=== PATIENT | female | born 2000 | race Caucasian/White ===

== ENCOUNTER 2018-11-26 10:57 | Emergency (ER) | payer OTHER ==
[~2018-11-26] VITALS: Ht 160 cm; Wt 61.4 kg
[2018-11-26] MEDS ORDERED: MIRE1IUD IU (11:06)
[2018-11-26] MEDS ORDERED: NS 1,000 ML IV ONE (12:00)
[2018-11-26] MEDS ORDERED: CLINDAMYCIN 900 MG in APPROPRIATE DILUENT 1 EA IV ONE (12:00)
[2018-11-26] MEDS ORDERED: KETOROLAC 30 MG/ML VIAL (J1885) IV ONE (12:15)
[2018-11-26 12:16] LABS: BASO # 0.1 10^3/uL (0.0-0.2); BASO % 0.3 % (0.0-1.0); HEMOGLOBIN 12.7 g/dl (12.0-15.5); LYMPH # 0.9 10^3/uL (1.5-6.5); LYMPH % 5.7 % (24.0-44.0); MEAN CORPUSCULAR HEMOGLOBIN 31.5 pg (27.0-33.0); MEAN CORPUSCULAR HGB CONC 35.3 g/dl (32.0-36.5); MEAN CORPUSCULAR VOLUME 89.3 fl (80.0-96.0); MONO # 1.8 10^3/uL (0.0-0.8); MONO % 10.9 % (0.0-5.0); NEUTROPHILS # 13.5 10^3/uL (1.8-7.7); NEUTROPHILS % 82.8 % (36.0-66.0); PLATELET COUNT, AUTOMATED 269 10^3/uL (150-450); RED BLOOD COUNT 4.03 10^6/uL (4.00-5.40); WHITE BLOOD COUNT 16.3 10^3/uL (4.0-10.0)
[2018-11-26 12:42] LABS: BLOOD UREA NITROGEN 8 MG/DL (7-18); CALCIUM LEVEL 8.7 MG/DL (8.5-10.1); CARBON DIOXIDE LEVEL 25 MEQ/L (21-32); CHLORIDE LEVEL 97 MEQ/L (98-107); CREATININE FOR GFR 0.64 MG/DL (0.55-1.30); GLUCOSE, FASTING 97 MG/DL (70-100); POTASSIUM SERUM 3.8 MEQ/L (3.5-5.1); SODIUM LEVEL 135 MEQ/L (136-145)
[2018-11-26] MEDS ORDERED: ISOVUE-370 76% 100ML VIAL (Q9967) As Ordered ONE (13:20)
--- NOTE | 2018-11-26 14:07 | REP ---
CT NECK WITH CONTRAST: HISTORY: Sore throat. CONTRAST: Isovue 370, 75 mL. There is enlargement of the tonsils, greater on the right than on the left. There is extension of the tonsillar enlargement due to the soft palate. There is inferior extension into the lateral grimaldo of the jordan- and upper hypopharynx. There is moderate mass effect on the oropharynx and minimal mass effect on the upper hypopharynx. There is prominence of the adenoidal tissue with effacement of the eustachian tube orifices and fossae of Rosenmueller. The larynx and subglottic trachea are normal in appearance. The salivary and thyroid glands are normal in size and density. An enlarged lymph node 1.9 cm in width is present in the right internal jugular chain at the level of the jordan- and hypopharynx. Enlarged lymph nodes 1.3 and 1.6 cm in width are present in the left internal jugular chain at the level of the jordan- and hypopharynx. An enlarged lymph node 1.5 cm in width is present in the right posterior triangle at the level of the oropharynx. Small lymph nodes less than 1 cm in size are present in the internal jugular chains, posterior triangles, submandibular and submental areas. The lung apices are clear. The visualized sinuses are clear. IMPRESSION: The above findings are consistent with tonsillitis and lymphadenitis. There is moderate mass effect on the oropharynx. Electronically Signed by Addison Mehta MD 11/26/2018 02:19 P
[2018-11-26] MEDS ORDERED: dexameTHASONE 20 MG/5 ML VIAL (J1100) IV ONE (14:30)
[2018-11-26 14:31] VITALS: BP 133/63
[2018-11-26] MEDS ORDERED: IBUP-1022 PO (14:32)
[2018-11-26] MEDS ORDERED: CLEO300C2 PO (14:32)
--- NOTE | 2018-11-26 16:53 | ED PDOC ---
Post-Departure Follow-Up ft [facility] faxed formal report of ct neck for fu Nimco Day MD November 26, 2018 16:53
== END 2018-11-26 14:50 | disposition home or self-care (01) ==
LOC: M ED 10:57
DX: J03.90 Acute tonsillitis, unspecified (principal); Z97.5 Presence of (intrauterine) contraceptive device
CPT/HCPCS: 70491; 80048; 84702; 85025; 87880; 96374; 96375; 99284; J1100; J1885; Q9967